=== PATIENT | female | born 1945 | race Caucasian/White ===

== ENCOUNTER 2025-03-28 11:27 | Outpatient (AMB) | payer MEDICARE, SELFPAY ==
--- OUTSIDE RECORDS SUMMARY | 2025-03-28 13:01 | XMS_ITS | Patient Health Record ---
Author Organization [facility] Billing Info Address [address] [place] [id number] Support Name Relationship Address Phone VirgenBreonna Guarantor Unknown Allergies Allergen (clinical drug ingredient) Drug/Non Drug Allergy documented on EMR Reaction Allergy Type Onset Date Status many foods (uncoded) Unknown Allergy Active caffeine / ergotamine Cafergot Unknown Drug Allergy Active tetracycline Tetracycline HCl Unknown Drug Allergy Active Reason For Referral No Information Medications Medication SIG (Take, Route, Frequency, Duration) Notes Start Date End Date Status Aspir-81 Active Glucosamine Chondr Complex Active PredniSONE (Eric) 10 MG day 1-6 tabs, day 2- 5 tabs, day 3- 4 tabs, day 4- 3 tabs, day 5- 2 tabs, day 6- 1 tab. Orally. Take with food as directed for 6 day(s) 10/08/2014 Active HRT Base Active Albuterol Sulfate HFA 108 (90 Base) MCG/ACT 2 puffs as needed Inhalation every 4 hrs 10/08/2014 Active Nystatin Active Guaifenesin AC 100-10 MG/5ML 5 - 10 ml Orally every 4 hrs prn cough/pain. Not if driving. Not at work. for 12 days 10/08/2014 Active Montelukast Sodium 10 MG Orally Active Levaquin 500 mg 1 tab(s) Orally Once a day for 10 day(s) 10/08/2014 Active Simvastatin 20 MG Orally Ac tive Problems Problem Type SNOMED Code ICD Code Onset Dates Problem Status W/U Status Risk Notes Problem [id number] Unspecified sinusitis (chronic) (473.9) Active confirmed Migrated-Pr oblemList-3 [facility]- 11/18/2013 Problem [id number] Acute pharyngitis (462) Active confirmed Problem [id number] Acute bronchitis (466.0) Active confirmed Problem [id number] Urinary frequency (788.41) Active confirmed Plan Of Treatment No Information Insurance Providers Payer Name Payer Address Payer Phone Subscriber Number Group Number Insured Name Patient Relationship to Insured Coverage Start Date Coverage End Date [place]ICARE [place] PART B [address] FORMERLY [facility], [facility] VIMAL OLENA QUIROZ [id number] VirgenBreonna Self - patient is the insured 4 2 [facility] MEDICARE SUPPLEMENT [address] [address] [place], [place] [id number] Breonna New Self - patient is the insured 4 2 Medical (General) History Medical History History ICD Code asthma hormone therapy replace Surgical History Surgery Date(Month/Year) hysterectomy
--- OUTSIDE RECORDS SUMMARY | 2025-03-28 13:01 | XMS_ITS | Clinical Summary ---
Author Organization [facility] Address [address] [place] [address] Care Team Providers Care Asphalt Patcher Name Role Phone Santiago Murillo MD Primary Care Provider [phone] Allergies Active Allergy Reactions Criticality Noted Date Comments Amoxicillin-Pot Clavulanate 03/07/2019 PER PCP Ergotamine-Caffeine Other (See Comments) Low 2017 EXTREME SHAKING Erythromycin 03/07/2019 PER PCP Penicillins Diarrhea,Nausea And Vomiting Low 01/12/2019 Tetracycline Rash Low Medications Medication Sig Dispensed Refills Start Date End Date Status simvastatin (ZOCOR) tablet 20 mg simvastatin 20 mg tablet PO Q PM 0 Active montelukast (SINGULAIR) 10 MG tablet Take 10 mg by mouth every night at bedtime. 0 05/20/2018 Active Fexofenadine HCl (KALEB PO) Take 180 mg by mouth daily. 0 Active albuterol (PROVENTIL HFA;VENTOLIN HFA) 108 (90 Base) MCG/ACT inhaler INHALE 2 PUFFS BY MOUTH 4 TIMES A DAY NEEDED FOR WHEEZING OR SHORTNESS OF BREATH 11 12/06/2018 Active SYMBICORT 80-4.5 MCG/ACT inhaler INHALE 1 PUFF BY MOUTH IN MORNING AND EVENING. USE WITH SPACER CHAMBER. RINSE MOUTH & THROAT AFTER. 3 12/06/2018 Active Methylcellulose, Laxative, (CITRUCEL PO) Take 2 caplet by mouth every evening. 0 Active valsartan (DIOVAN) tablet 80 mg Take 80 mg by mouth daily. 0 Active Glucosamine-Chondr oitin (MOVE FREE PO) Take 2 tablets by mouth daily. 0 Active Cholecalciferol (VITAMIN D3) 1000 units CAPS Take 1 caplet by mouth daily. 0 Active Multiple Vitamins-Minerals (ICAPS AREDS 2 PO) Take 2 tablets by mouth daily. 0 Active TURMERIC PO Take 1 caplet by mouth daily. 0 Active senna-docusate (SENOKOT S) 8.6-50 MG Take 1-2 tablets by mouth daily. Take one to two tabs daily to prevent constipation while on narcotic pain medications. . 30 tablet 0 03/11/2019 Active methocarbamol (ROBAXIN) 750 MG tablet Take 1 tablet (750 mg total) by mouth 4 (four) times a day as needed. 40 tablet 0 03/11/2019 Active HYDROmorphone (DILAUDID) 2 MG tablet Take 1 tablet (2 mg total) by mouth every 4 (four) hours as needed for pain (PRN pain.). 40 tablet 0 03/12/2019 Active alclomethasone (ACLOVATE) 0.05 % cream alclometasone 0.05 % topical cream 0 Active celecoxib (CeleBREX) 200 MG capsule celecoxib 200 mg capsule 0 Active Diclofenac Sodium 1 % GEL topical diclofenac 1 % topical gel 0 Active meloxicam (MOBIC) 15 MG tablet meloxicam 15 mg tablet 0 Active albuterol (VENTOLIN HFA) 108 (90 Base) MCG/ACT inhaler Ventolin HFA 90 mcg/actuation aerosol inhaler 0 Active losartan (COZAAR) tablet 25 mg Take 25 mg by mouth daily. 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 05/21/2018 Joint laxity MCP joint left thumb 05/21/2018 Primary localized osteoarthrosis of left lower l eg 04/30/2018 Family History Medical History Relation Name Comments Diabetes Father Hyperlipidemia Father Hyperlipidemia Mother Hyperlipidemia Sister Relation Name Status Comments Father Mother Sister Social History Tobacco Use Types Packs/Day Years Used Date Smoking Tobacco: Former Cigarettes 0.5 20 Q uit: 02/25/1998 Smokeless Tobacco: Never Alcohol Use Standard Drinks/Week Comments Yes 2 (1 standard drink = 0.6 oz pur e alcohol) social Sex and Gender Information Value Date Recorded Sex Assigned at Female 02/25/2019 9:16 AM EDT Gender Identity Female 02/25/2019 9:16 AM EDT Sexual Orientation Straight 03/10/2019 6: 48 AM EDT Job Start Date Occupation Industry Not on file Not on file Not on file Last Filed Vital Signs Vital Sign Reading Time Taken Comments Blood Pressure 148/75 03/13/2019 7:59 AM EDT Pulse 76 03/13/2019 7:59 AM EDT Temperature 36.8 C (98.3 F) 03/13/2019 7:59 AM EDT Respiratory Rate 18 03/13/2019 7:59 AM EDT Oxygen Saturation 95% 03/13/2019 7:59 AM EDT Inhaled Oxygen Concentration - - Weight 86.2 kg (190 lb) 01/30/2021 3:06 PM EDT Height 165.1 cm (5' 5 ) 01/30/2021 3:06 PM EDT Body Mass Index 31.62 01/30/2021 3:06 PM EDT Plan of Treatment Health Maintenance Due Date Last Done Comments COVID-19 Vaccine (#1) 1945 Depression Screening 1957 BMI Counseling 1963 Preventative Health Evaluation 1963 DTap / Tdap / Td (1 - Tdap) 02/04/1964 Shingrix-Zoster Vaccine (1 of 2) 1995 Fall Risk Assessment 2010 Osteoporosis Screening (DEXA Scan) 2010 Pneumococcal Vaccine (1 of 1 - PCV) 2010 RSV Adult > 60+ Yrs or Pregn ant (1 - 1-dose 75+ series) 02/04/2020 Influenza Vaccine (#1) 2025 Hepatitis B Vaccines Aged Out No long er eligible based on patient's age to complete this topic RSV Ped < 20 months Aged Out No longe r eligible based on patient's age to complete this topic Medical Devices Implanted Type Area Family Medicine Resident Device Identifier Shelf Expiration Date Model / Serial / Lot Cement Simplex P Radiopaque Full Dose Bone 10 Pack - [id number] - [id number] Implanted:Qty: 1 on 03/10/2019 by Mc Marinelli MD at [facility] Left: Knee [employer] 04/09/2021 6191-1-010 / / [id number] Cement Simplex P Radiopaque Full Dose Bone 10 Pack - [id number] - [id number] Implanted:Qty: 1 on 03/10/2019 by Mc Marinelli MD at [facility] Left: Knee [employer] 04/09/2021 6191-1-010 / / [id number] Component Triathlon 3 Posterior Stabilized Cemented Femoral - [id number] - [id number] Implanted:Qty: 1 on 03/10/2019 by Mc Marinelli MD at [facility] Left: Knee [employer] 10/06/2023 5515-F-301 / / [id number] Baseplate Triathlon 4 Primary Cemented Tibial Knee - [id number] - [id number] Implanted:Qty: 1 on 03/10/2019 by Mc Marinelli MD at [facility] Left: Knee [employer] 10/17/2023 5520-B-400 / / [id number] Triathlon Ps Insert - Size 4 10mm X3 - [id number] - [id number] Implanted:Qty: 1 on 03/10/2019 by Mc Marinelli MD at [facility] Left: Knee [employer] 05/03/2023 5532-G-410 -[id number] / / [id number] Component Triathlon 8mm 27mm Symmetric X3 Ptlar Knee - [id number] - [id number] Implanted:Qty: 1 on 03/10/2019 by Mc Marinelli MD at [facility] Left: Knee [employer] 10/03/2023 5550-G-278 / / [id number] Peg Triathlon Modular Fix Distal Femur Knee - [id number] - [id number] Implanted:Qty: 1 on 03/10/2019 by Mc Marinelli MD at [facility] Left: Knee [employer] 10/13/2023 5575-X-000 / / [id number] Advance Directives For more information, please contact: [phone] Latest Code Status on File Code Status Date Activated Date Inactivated Comments Full Code 03/10/2019 8:25 AM 03/13/2019 5:41 PM This co de status was ascertained in the following way: discussion with patient . Code Status History Code Status Date Activated Date Inactivated Comments Full Code 03/10/2019 6:28 AM 03/10/2019 8:25 AM This co de status was ascertained in the following way: discussion with patient . Care Teams Asphalt Patcher Relationship Specialty Start Date End Date Santiago Murillo MD [address] [place] [id number] PCP - General Internal Medicine 04/30/18
--- OUTSIDE RECORDS SUMMARY | 2025-03-28 13:01 | XMS_ITS | Clinical Summary ---
Author Organization [facility] it Address [address] [place] [address] Care Team Providers Care Facilities Plant Engineer Name Role Phone Unavailable Primary Care Provider Unavailabl e Surgical History Surgery Date Site/Laterality Comments HYSTERECTOMY PROCEDURE:HYSTERECTOMY FOOT SURGERY Left PROCEDURE:FOOT SURGERY DILATION AND CURETTAGE OF UTERUS PROCEDURE:DILATION AND CURETTAGE OF UTERUS COLONOSCOPY PROCEDURE:COLONOSCOPY CARDIAC CATHETERIZATION PROCEDURE:CARDIAC CATHETERIZATION;COMMENT:X2-N O INTERVENTION, NO CAD TOTAL KNEE ARTHROPLASTY 03/10/2019 Left PROCEDURE:TOTAL KNEE ARTHROPLASTY;COMMENT:Procedu re: REPLACEMENT TOTAL KNEE; Surgeon: Mc Marinelli MD; [facility] Service: Orthopedics; Laterality: Left; JOINT REPLACEMENT PROCEDURE:JOINT REPLACEMENT Medical History Medical History Date Comments On prednisone therapy history of prednisone use DX:On prednisone therapy Osteoarthritis DX:Osteoarthriti s Hyperlipidemia DX:Hyperlipidemi a Hypertension DX:Hypertension Motion sickness DX:Motion sickne ss Asthma DX:Asthma;COMMEN T:SEASONAL/A LLERGIC Migraine headache DX:Migraine headache;COMMENT:< YEARLY Diabetes mellitus, type II (CMS/HCC V24, CMS/HCC V28) DX:Diabetes mellitus, type II ([facility]);COMMENT:DIET-CONTROLLE D-NO MEDS Urinary frequency DX:Urinary wesley quency Eczema DX:Eczema;COMMEN T:HANDS-DORM ANT NOW Irritable bowel DX:Irritable bow el Macular degeneration DX:Macular degeneration Family History Medical History Relation Name Comments Diabetes Father Hyperlipidemia Father Hyperlipidemia Mother Hyperlipidemia Sister Relation Name Status Comments Father Mother Sister Social History Tobacco Use Types Packs/Day Years Used Date Smoking Tobacco: Former Cigarettes Q uit: 02/25/1998 Smokeless Tobacco: Never Alcohol Use Standard Drinks/Week Comments Yes 2 (1 standard drink = 0.6 oz pur e alcohol) Sex and Gender Information Value Date Recorded Sex Assigned at Not on file Legal Sex Male 8:33 AM EST Gender Identity Not on file Sexual Orientation Not on file Obstetrics History Plan of Treatment Health Maintenance Due Date Last Done Comments DTaP,Tdap,and Td Vaccines (1 - Tdap) 02/04/1964 Pneumococcal Vaccine: 50+ Ye ars (1 of 1 - PCV) 1995 Zoster Vaccines (1 of 2) 1995 RSV Immunization Adult Patie nts (1 - 1-dose 75+ series) 02/04/2020 Cholesterol Screening (Lipid Panel) 07/13/2022 Falls Risk Assessment 07/13/2022 Social Influencers of Health Screening 07/13/2022 COVID-19 Vaccine ( - 2023-2 5 season) 2024 Depression Screening 08/10/2024 Influenza Vaccine (#1) 2025 HIB Vaccines Aged Out No longer eligi ble based on patient's age to complete this topic HPV Vaccines Aged Out No longer eligi ble based on patient's age to complete this topic Hepatitis A Vaccines Aged Out No long er eligible based on patient's age to complete this topic Hepatitis B Vaccines Aged Out No long er eligible based on patient's age to complete this topic IPV Vaccines Aged Out No longer eligi ble based on patient's age to complete this topic MMR Vaccines Aged Out No longer eligi ble based on patient's age to complete this topic Meningococcal ACWY Vaccine Aged Out N o longer eligible based on patient's age to complete this topic Meningococcal B Vaccine Aged Out No l onger eligible based on patient's age to complete this topic RSV Immunization Patients Un matilde 20 months Aged Out No longer eligible b ased on patient's age to complete this topic Varicella Vaccines Aged Out No longer eligible based on patient's age to complete this topic Medical Devices Implanted Type Area Detector Car Operator Device Identifier Shelf Expiration Date Model / Serial / Lot Cement Simplex P Radiopaque Full Dose Bone 10 Pack - [id number] Implanted:Qty: 1 on 03/10/2019 by Mc Marinelli MD Left: Knee [employer] 04/09/2021 6191-1-010 / / [id number] Cement Simplex P Radiopaque Full Dose Bone 10 Pack - [id number] Implanted:Qty: 1 on 03/10/2019 by Mc Marinelli MD Left: Knee [employer] 04/09/2021 6191-1-010 / / [id number] Component Triathlon 3 Posterior Stabilized Cemented Femoral - [id number] Implanted:Qty: 1 on 03/10/2019 by Mc Marinelli MD Left: Knee [employer] 10/06/2023 5515-F-301 / / [id number] Baseplate Triathlon 4 Primary Cemented Tibial Knee - [id number] Implanted:Qty: 1 on 03/10/2019 by Mc Marinelli MD Left: Knee [employer] 10/17/2023 5520-B-400 / / [id number] Triathlon Ps Insert - Size 4 10mm X3 - [id number] Implanted:Qty: 1 on 03/10/2019 by Mc Marinelli MD Left: Knee [employer] 05/03/2023 5532-G-410 -E / / [id number] Component Triathlon 8mm 27mm Symmetric X3 Ptlar Knee - [id number] Implanted:Qty: 1 on 03/10/2019 by Mc Marinelli MD Left: Knee [employer] 10/03/2023 5550-G-278 / / [id number] Peg Triathlon Modular Fix Distal Femur Knee - [id number] Implanted:Qty: 1 on 03/10/2019 by Mc Marinelli MD Left: Knee [employer] 10/13/2023 5575-X-000 / / [id number]
== END 2025-03-28 11:29 | disposition home or self-care (01) ==
LOC: HO.HMGAL 11:27
PROVIDERS: PCP Internal Medicine; Visit Provider Registered Nurse Emergency
DX: J30.89 Other allergic rhinitis (principal)
CPT/HCPCS: 95117; 95165